=== PATIENT | male | born 1990 | race Caucasian/White ===

== ENCOUNTER 2017-11-21 11:20 | Outpatient (RCR) | payer OTHER ==
[2017-09-13 10:20] VITALS: BP 113/62
[2017-09-13 10:47] LABS: PLATELET COUNT, AUTOMATED 289 K/uL (150-450)
[2017-09-13] MEDS: LIDOCAINE/SOD BICARB 8.4% SYR ID PRN (10:49)
[2017-09-13] MEDS: NS(*) 0.9% 100 ML BAG 100 ML IVPB PRN (10:50)
[2017-11-07 11:10] VITALS: BP 98/72
[2017-11-07] MEDS: LIDOCAINE/SOD BICARB 8.4% SYR ID PRN (11:12)
[2017-11-07] MEDS: NS(*) 0.9% 100 ML BAG 100 ML IVPB PRN (11:12)
[2017-11-07 11:21] LABS: PLATELET COUNT, AUTOMATED 198 K/uL (150-450)
[2017-11-07 12:48] VITALS: BP 98/68
[2017-11-14 08:18] VITALS: BP 100/64
[~2017-11-21 11:20] MED LIST: ADAL40PE4 SQ; DEXTROSE 5%(*) 100 ML BAG 100 ML IVPB PRN; DICY20TA70 PO; LOSA25TA50 PO; MESA1.2T2 PO; MET1000I IJ; ONDA4TAB PO; PANT40TA65 PO; PRED-1 PO; RIVA15TA PO; RIVA20TA PO; VEDOLIZUMAB 300 MG VIAL 300 MG in NS(*) 0.9% 250 ML BAG 250 ML IVPB ONE
[2017-11-21 11:30] VITALS: BP 107/70
--- NOTE | 2017-11-22 17:30 | ONCOLOGY FOLLOW UP NOTE ---
EVENT DATE: November 21, 2017 CHIEF COMPLAINT/REASON FOR VISIT Mr. Simon is a very pleasant 26-year-old gentleman with a history of Crohn's disease controlled on treatment, bicuspid aortic valve with ascending aortic dilatation, unprovoked pulmonary embolus, right central retinal artery occlusion on indefinite anticoagulation, here for followup. HISTORY OF PRESENT ILLNESS Samy returns. He continues on indefinite Xarelto and is tolerating this well. He had his Neurology consultation in June 2017. MRI did show some concern for possible old small infarct, raising the need for continued Xarelto. I feel that his main risk factor is the Crohn's disease. He did have antiphospholipid antibodies that were abnormal, but when we repeated them they were normal. This document is scanned in the chart. Overall he is doing well. No new symptoms. No new symptoms with his heart that would suggest the need for aortic valve and ascending aorta replacement, although he will need that some day. When that occurs we will need to figure out how to deal with his anticoagulation. If they utilized a tissue valve we could continue the Xarelto. If they used a mechanical valve, that is a contraindication to use Xarelto. No other symptoms or concern. PAST MEDICAL HISTORY 1. Crohn disease. 2. Iron deficiency anemia due to GI bleeding. 3. Bicuspid aortic valve with thoracic aortic aneurysm. 4. History of unprovoked pulmonary embolism with reported positivity for antiphospholipid antibodies, but negative antibodies after followup check. It was felt that he did not have the antiphospholipid antibody syndrome and that chronic anticoagulation was not indicated. SOCIAL HISTORY The patient is a nonsmoker and nondrinker. 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 FAMILY HISTORY Noncontributory. REVIEW OF SYSTEMS CONSTITUTIONAL: No fevers, chills, weight change. HEENT: No headache. Patient does have trouble with night vision, but no other issues. CARDIOVASCULAR: No chest pain, dyspnea on exertion or edema. RESPIRATORY: No shortness of breath, wheeze, cough. GASTROINTESTINAL: No nausea, vomiting. Positive symptoms from Crohn's. Follows with the GI team. GENITOURINARY: No dysuria or hematuria. MUSCULOSKELETAL: No weakness or joint pain. PSYCHIATRIC: No anxiety or depression. ENDOCRINE: No heat or cold intolerance. SKIN: No concerning findings. PHYSICAL EXAMINATION VITAL SIGNS: Blood pressure 107/70, pulse 72, respiratory rate 16, temperature 98.7 Fahrenheit, oxygen saturation 97% on room air. Weight 63.2 kg. Pain 0/10 , fatigue 0/10. GENERAL: In stable condition, resting comfortably in the chair. HEENT: Normocephalic, atraumatic. CARDIOVASCULAR: Regular rate and rhythm. S1, S2 and an additional sound appreciated. He has a systolic murmur with a faint diastolic murmur. I do not believe the diastolic murmur has worsened to suggest worsening aortic regurgitation. EXTREMITIES: No clubbing, cyanosis or edema. PSYCHIATRIC: Normal mood and affect. ABDOMEN: Soft and nontender. Remainder of physical exam otherwise unremarkable. IMPRESSION AND PLAN Mr. Simon is a very pleasant 26-year-old gentleman with the followin. Crohn's disease, controlled. 2. History of unprovoked pulmonary embolus. 3. Right eye central retinal artery occlusion, now on indefinite Xarelto. 4. History of iron deficiency due to chronic blood loss due to Xarelto, currently controlled. 5. Bicuspid aortic valve with ascending aortic aneurysm, likely in need of replacement someday. Xarelto is contraindicated with mechanical valves, but his cardiology team is considering his surgery without a mechanical valve. Greatly appreciate the Neurology consultation with Dr. Grande in [place]. Unfortunately he will likely not have any recovery of the vision in his right ear. Anticoagulation will be indefinite. We will see him annually. I answered all of his questions today. Billing: Return visit level 4. Total time 30 minutes, counseling time 20. MTDD
== END 2017-12-11 ==
LOC: ONC 11:20
PROVIDERS: ATTEND Internal Medicine
DX: K50.90 Crohn's disease, unspecified, without complications (principal); Z86.711 Personal history of pulmonary embolism; Z79.01 Long term (current) use of anticoagulants; H34.11 Central retinal artery occlusion, right eye; Q23.1 Congenital insufficiency of aortic valve; I71.2 Thoracic aortic aneurysm, without rupture
CPT/HCPCS: 36415; 82728; 83540; 83550; 85025; 96365; 99212; J3380; J7050; 82040; 82247; 82310; 82374; 82435; 82565; 82947; 84075; 84132; 84155; 84295; 84450; 84460; 84520

== ENCOUNTER 2018-01-02 13:57 | Outpatient (RCR) | payer OTHER ==
[~2018-01-02 13:57] MED LIST changes: +LIDOCAINE/SOD BICARB 8.4% SYR ID PRN; +NS(*) 0.9% 100 ML BAG 100 ML IVPB PRN; -VEDOLIZUMAB 300 MG VIAL 300 MG in NS(*) 0.9% 250 ML BAG 250 ML IVPB ONE
[2018-01-02 14:37] VITALS: BP 107/70
[2018-01-02] MEDS ORDERED: VEDOLIZUMAB 300 MG VIAL 300 MG in NS(*) 0.9% 250 ML BAG 250 ML IVPB ONE (14:45)
== END 2018-02-02 10:24 | disposition home or self-care (01) ==
LOC: SPU 13:57
PROVIDERS: ATTEND Internal Medicine
DX: K50.90 Crohn's disease, unspecified, without complications (principal)
CPT/HCPCS: 96365; J3380; J7050

== ENCOUNTER 2018-05-01 10:00 | Outpatient (RCR) | payer OTHER ==
[2018-03-06 10:43] VITALS: BP 112/76
[2018-03-06] MEDS: LIDOCAINE/SOD BICARB 8.4% SYR ID PRN (11:08)
[~2018-05-01 10:00] MED LIST changes: -LIDOCAINE/SOD BICARB 8.4% SYR ID PRN; -LOSA25TA50 PO; +LOSA25TA52 PO; +VEDOLIZUMAB 300 MG VIAL 300 MG in NS(*) 0.9% 250 ML BAG 250 ML IVPB ONE
[2018-05-01 10:10] VITALS: BP 112/76
[2018-05-01] MEDS: LIDOCAINE/SOD BICARB 8.4% SYR ID PRN (10:52)
[2018-05-01] MEDS ORDERED: VEDOLIZUMAB 300 MG VIAL 300 MG in NS(*) 0.9% 250 ML BAG 250 ML IVPB ONE (11:00)
[2018-05-01 11:33] VITALS: BP 104/77
== END 2018-06-01 ==
LOC: SPU 10:00
PROVIDERS: ATTEND Internal Medicine
DX: K50.90 Crohn's disease, unspecified, without complications (principal)
CPT/HCPCS: 96365; J3380; J7050

== ENCOUNTER → 2018-05-25 | Outpatient (CLI) | payer OTHER ==
[~2018-05-25] MED LIST changes: -DEXTROSE 5%(*) 100 ML BAG 100 ML IVPB PRN; -NS(*) 0.9% 100 ML BAG 100 ML IVPB PRN; -VEDOLIZUMAB 300 MG VIAL 300 MG in NS(*) 0.9% 250 ML BAG 250 ML IVPB ONE
[2018-05-25 13:06] LABS: PLATELET COUNT, AUTOMATED 193 K/uL (150-450)
== END ==
LOC: LAB 12:31
PROVIDERS: ATTEND Nurse Practitioner Family
DX: K50.90 Crohn's disease, unspecified, without complications (principal); D50.9 Iron deficiency anemia, unspecified; I26.99 Other pulmonary embolism without acute cor pulmonale; D68.61 Antiphospholipid syndrome
CPT/HCPCS: 36415; 82040; 82247; 82310; 82374; 82435; 82565; 82947; 84075; 84132; 84155; 84295; 84450; 84460; 84520; 85025; 86140

== ENCOUNTER → 2018-06-02 | Outpatient (CLI) | payer OTHER ==
[~2018-06-02] MED LIST changes: +BARIUM SULFATE 450 ML SUSP ONE; +IOPAMIDOL 76% 75 ML INFUS BTL 75 ML ONE
--- NOTE | 2018-06-02 14:11 | RADIOLOGY IMAGING REPORT ---
FACILITY: [facility] PATIENT NAME: Hermilo Simon : 1990 MR: [id number] V: [id number] EXAM DATE: ORDERING PHYSICIAN: ROSALINDA UGALDE TECHNOLOGIST: Location: [facility] [place] Patient: Hermilo Siomn : 1990 Visit/Account:[id number] Date of Sevice: 06/02/2018 ENTEROGRAPHY ABD/PEL W/CONTR HISTORY: Crohn's disease, iron deficiency TECHNIQUE: Following administration of IV contrast contiguous axial images acquired through the abdom en/pelvis. Coronal and sagittal reformatting also performed. Dose Lowering Technique One of the following dose optimization techniques was utilized in the performance of this exam: Autom ated exposure control; adjustment of the mA and/or kV according to the patient's size; or use of an i terative reconstruction technique. Specific details can be referenced in the facility's radiology C T exam operational policy. CONTRAST: 75 mL Isovue-370,Volumen was also utilized as an oral contrast COMPARISON: CT abdomen pelvis March 05, 2014 FINDINGS: Visualized lung bases: Small amount linear stranding in the inferior lingula may represent scarring or small amount of atelectasis Hepatobiliary: There is hepatic steatosis Spleen: Negative. Adrenals: Negative. Pancreas: Negative. Kidneys ureters or bladder: Negative. Genitalia: Negative. GI: There is a 1.3 cm enhancing nodule within the cecum which may represent a polyp although other e nhancing mass is not excluded .. This is best appreciated on axial image 381 of series 3 and mendosa l image #30 of series 4 Vessels/spaces/nodes: Negative. Bones/soft tissues: Negative. Additional findings: None pertinent. IMPRESSION: Small amount linear stranding in the inferior lingula may represent scarring or small amount of atele ctasis There is a 1.3 cm enhancing nodule within the cecum which may represent a polyp although other enhanc ing masses are not excluded and colonoscopy may be of value Report Dictated By: Latrice Lacy MD at 06/02/2018 1:08 PM Report E-Signed By: Latrice Lacy MD at 06/02/2018 2:06 PM WSN:[id number]
== END ==
LOC: CT 04:08
PROVIDERS: ATTEND Nurse Practitioner Family
DX: J98.11 Atelectasis (principal); K63.89 Other specified diseases of intestine
CPT/HCPCS: Q9967

== ENCOUNTER → 2018-08-03 | Outpatient (CLI) | payer OTHER ==
[~2018-08-03] MED LIST changes: -BARIUM SULFATE 450 ML SUSP ONE; -IOPAMIDOL 76% 75 ML INFUS BTL 75 ML ONE
[2018-08-03 11:44] LABS: PLATELET COUNT, AUTOMATED 193 K/uL (150-450)
== END ==
LOC: LAB 11:20
PROVIDERS: ATTEND Nurse Practitioner Family
DX: K50.90 Crohn's disease, unspecified, without complications (principal); D50.9 Iron deficiency anemia, unspecified; I26.99 Other pulmonary embolism without acute cor pulmonale; H34.10 Central retinal artery occlusion, unspecified eye; D68.61 Antiphospholipid syndrome
CPT/HCPCS: 36415; 82040; 82247; 82310; 82374; 82435; 82565; 82947; 84075; 84132; 84155; 84295; 84450; 84460; 84520; 85025; 86140

== ENCOUNTER 2018-08-17 02:59 | Day surgery (SDC) | payer OTHER ==
[2018-08-17] VITALS (7 sets, daily range): BP systolic 87–105; BP diastolic 55–75
[~2018-08-17] VITALS: Ht 182.9 cm; Wt 62.1 kg
[~2018-08-17 02:59] MED LIST changes: -LOSA25TA52 PO; +LOSA25TA57 PO; +VEDO300V IV
[2018-08-17] MEDS ORDERED: PROPOFOL EMUL(*) 10MG/ML 20 ML 60 ML ONE (08:17)
[2018-08-17] MEDS ORDERED: LIDOCAINE MPF 1% 5 ML VIAL ONE (08:17)
[2018-08-17] MEDS ORDERED: LIDOCAINE/SOD BICARB 8.4% SYR ID ONE (09:45)
[2018-08-17] MEDS ORDERED: NORMOSOL R SOLN(*) 1000 ML BAG 1,000 ML IV PRN (09:45)
== END 2018-08-17 12:20 | disposition home or self-care (01) ==
LOC: OR 02:59
PROVIDERS: ATTEND Internal Medicine Gastroenterology
DX: K50.90 Crohn's disease, unspecified, without complications (principal); K64.9 Unspecified hemorrhoids
CPT/HCPCS: 00811; 45380; 88305; J2001; J2704

== ENCOUNTER 2018-12-15 09:57 | Outpatient (RCR) | payer OTHER ==
[2018-10-20 11:34] VITALS: BP 105/76
[2018-10-20] MEDS: LIDOCAINE/SOD BICARB 8.4% SYR ID PRN (11:51)
[2018-10-20] MEDS: NS(*) 0.9% 100 ML BAG 100 ML IVPB PRN (11:51)
[2018-10-20 12:53] VITALS: BP 96/64
[2018-10-30 16:50] LABS: PLATELET COUNT, AUTOMATED 192 K/uL (150-450)
[2018-10-30 17:01] VITALS: BP 114/72
[2018-11-06 16:00] VITALS: BP 114/65
--- NOTE | 2018-11-07 12:14 | [facility] ONCOLOGY NOTE ---
EVENT DATE: November 06, 2018 CHIEF COMPLAINT/REASON FOR VISIT Mr. 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 HISTORY OF PRESENT ILLNESS Samy returns. He continues to indefinite Xarelto and is tolerating this well. I feel that the main risk factor is his Crohn's disease and we reviewed this again today. He did have antiphospholipid antibodies that were abnormal but we repeated them and they were then normal. Overall, he is doing well. He continues to follow with Cardiology for his aortic valve and ascending aortic aneurysm but he does not need surgery at this time. His murmur is both systolic and diastolic but unchanged. The diastolic murmur is faint, which is encouraging. If they require a mechanical valve some day, that is a contraindication to using Xarelto, but they may consider using a tissue valve, in which case we likely could continue Xarelto. No other symptoms of concern today. PAST MEDICAL HISTORY 1. Crohn disease. 2. Iron deficiency anemia due to GI bleeding. 3. Bicuspid aortic valve with thoracic aortic aneurysm. 4. History of unprovoked pulmonary embolism with reported positivity for antiphospholipid antibodies, but negative antibodies after followup check. It was felt that he did not have the antiphospholipid antibody syndrome and that chronic anticoagulation was not indicated. SOCIAL HISTORY The patient is a nonsmoker and nondrinker. 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 FAMILY HISTORY Noncontributory. REVIEW OF SYSTEMS CONSTITUTIONAL: No fevers, chills, weight change. HEENT: No headache. Patient does have trouble with night vision, but no other issues. CARDIOVASCULAR: No chest pain, dyspnea on exertion or edema. RESPIRATORY: No shortness of breath, wheeze, cough. GASTROINTESTINAL: No nausea, vomiting. Positive symptoms from Crohn's. Follows with the GI team. GENITOURINARY: No dysuria or hematuria. MUSCULOSKELETAL: No weakness or joint pain. PSYCHIATRIC: No anxiety or depression. ENDOCRINE: No heat or cold intolerance. SKIN: No concerning findings. PHYSICAL EXAMINATION VITAL SIGNS: Blood pressure 114/65, pulse 71, respiratory rate 16, temperature 97.2 Fahrenheit, oxygen saturation 96% on room air. Weight 65.3 kg. Pain 0/10, fatigue 0/10. GENERAL: Stable condition, resting comfortably in the chair. HEENT: Normocephalic, atraumatic. CARDIOVASCULAR: Regular rate and rhythm. An additional sound is appreciated. He has a significant 4/6 systolic murmur with a faint 2/6 diastolic murmur. I do not believe the diastolic murmur has worsened to suggest worsening aortic regurgitation. EXTREMITIES: No clubbing, cyanosis or edema. LUNGS: Clear. PSYCHIATRIC: Normal mood and affect. ABDOMEN: Soft and nontender. Remainder of physical exam otherwise unremarkable. IMPRESSION AND PLAN Mr. Simon is a very pleasant 27-year-old gentleman with the followin. Controlled Crohn's disease. 2. History of unprovoked pulmonary embolus. 3. History of right eye central retinal artery occlusion, now on indefinite Xarelto. 4. History of iron deficiency due to chronic blood loss due to Xarelto and Crohn's disease. His ferritin is 31 and he does not require replacement today. 5. Bicuspid aortic valve with ascending aortic aneurysm, likely in need of replacement someday. Xarelto is a contraindication for mechanical valves but his cardiology team may consider surgery without a mechanical valve. I answered all of his questions today. I will continue to see him annually. Billing: Return visit level 4. Total time 30 minutes, counseling time 20. MTDD
[~2018-12-15 09:57] MED LIST changes: +DEXTROSE 5%(*) 100 ML BAG 100 ML IVPB PRN; +VEDOLIZUMAB 300 MG VIAL 300 MG in NS(*) 0.9% 250 ML BAG 250 ML IVPB ONE
[2018-12-15 10:07] VITALS: BP 108/75
[2018-12-15] MEDS ORDERED: VEDOLIZUMAB 300 MG VIAL 300 MG in NS(*) 0.9% 250 ML BAG 250 ML IVPB ONE (10:30)
[2018-12-15] MEDS: LIDOCAINE/SOD BICARB 8.4% SYR ID PRN (10:46)
[2018-12-15] MEDS: NS(*) 0.9% 100 ML BAG 100 ML IVPB PRN (10:48)
[2018-12-15 11:24] VITALS: BP 107/71
== END 2019-01-18 ==
LOC: SPU 09:57
PROVIDERS: ATTEND Internal Medicine
DX: K50.90 Crohn's disease, unspecified, without complications (principal); Z86.711 Personal history of pulmonary embolism; I71.2 Thoracic aortic aneurysm, without rupture
CPT/HCPCS: 36415; 82728; 83540; 83550; 85025; 96365; 99212; J3380; J7050; 82040; 82247; 82310; 82374; 82435; 82565; 82947; 84075; 84132; 84155; 84295; 84450; 84460; 84520

== ENCOUNTER → 2019-01-18 | Outpatient (CLI) | payer OTHER ==
[~2019-01-18] MED LIST changes: -DEXTROSE 5%(*) 100 ML BAG 100 ML IVPB PRN; -VEDOLIZUMAB 300 MG VIAL 300 MG in NS(*) 0.9% 250 ML BAG 250 ML IVPB ONE
[2019-01-18 13:15] LABS: PLATELET COUNT, AUTOMATED 186 K/uL (150-450)
== END ==
LOC: LAB 12:21
PROVIDERS: ATTEND Nurse Practitioner Family
DX: K50.90 Crohn's disease, unspecified, without complications (principal); D50.9 Iron deficiency anemia, unspecified; I26.99 Other pulmonary embolism without acute cor pulmonale; D68.61 Antiphospholipid syndrome
CPT/HCPCS: 36415; 82040; 82247; 82310; 82374; 82435; 82565; 82947; 84075; 84132; 84155; 84295; 84450; 84460; 84520; 85025; 86140

== ENCOUNTER → 2019-04-06 | Outpatient (CLI) | payer OTHER ==
[2019-04-06 15:40] LABS: PLATELET COUNT, AUTOMATED 179 K/uL (150-450)
== END ==
LOC: LAB 15:26
PROVIDERS: ATTEND Nurse Practitioner Family
DX: K51.90 Ulcerative colitis, unspecified, without complications (principal); D50.9 Iron deficiency anemia, unspecified; Z79.899 Other long term (current) drug therapy
CPT/HCPCS: 36415; 82040; 82247; 82310; 82374; 82435; 82565; 82947; 84075; 84132; 84155; 84295; 84450; 84460; 84520; 85025; 86140